=== PATIENT | male | born 1990 | race African-American/Black ===

== ENCOUNTER 2019-02-14 12:07 | Emergency (ER) | payer OTHER ==
[~2019-02-14] VITALS: Ht 177.8 cm; Wt 77.1 kg
[2019-02-14 12:17] VITALS: BP 142/88
[2019-02-14] MEDS ORDERED: LIDOCAINE 1% HCL (LOCAL ANESTH.) INJ 20ML MDV ONE (15:06)
[2019-02-14] MEDS ORDERED: IBUPROFEN 800 MG TAB PO ONE (15:30)
[2019-02-14] MEDS ORDERED: TETANUS-DIPTH-ACEL PERTUSSIS 0.5ML SYRG IM ONE (15:30)
== END 2019-02-14 15:57 | disposition home or self-care (01) ==
LOC: ER 12:07 → EEVIPCON 12:07 → EDBD 12:07 → ER 15:57
DX: S01.311A Laceration without foreign body of right ear, initial encounter (principal); S01.01XA Laceration without foreign body of scalp, initial encounter; S81.831A Puncture wound without foreign body, right lower leg, initial encounter; Y08.89XA Assault by other specified means, initial encounter; Y93.89 Activity, other specified; Y99.8 Other external cause status; Y92.89 Other specified places as the place of occurrence of the external cause
CPT/HCPCS: 12002; 12013; 70450; 90471; 90715; 99284; J2001